=== PATIENT | male | born 1945 | race Caucasian/White ===

== ENCOUNTER 2020-05-11 15:39 | Inpatient (IN) | payer MEDICARE, OTHER ==
[~2020-05-11] VITALS: Ht 182.9 cm; Wt 92.8 kg
[~2020-05-11 15:39] MED LIST: AMLODIPINE BESY10 MG PO; ASPIR 8181 MG PO; CLONAZEPAM1 MG PO; ELIQUIS2.5 MG PO; FINASTERIDE5 MG PO; GABAPENTIN300 MG PO; LINZESS290 MCG PO; LOSARTAN POTAS100 MG PO; MIRALAX17 GM PO; NAPROSYN500 MG PO; NORCO 5-325 TA1 EACH PO; PANTOPRAZOLE SO40 MG PO
[2020-05-12 05:23] LABS: HEMOGLOBIN 9.3 gm/dl (14.0-17.5); RED BLOOD COUNT 3.16 M/UL (4.20-5.50); WHITE BLOOD COUNT 10.6 K/UL (4.5-11.0)
[2020-05-12 05:47] LABS: BUN/CREATININE RATIO 16 (0-10)
[2020-05-13 04:43] LABS: HEMOGLOBIN 8.5 gm/dl (14.0-17.5); RED BLOOD COUNT 2.91 M/UL (4.20-5.50); WHITE BLOOD COUNT 11.2 K/UL (4.5-11.0)
[2020-05-13 05:09] LABS: BUN/CREATININE RATIO 21 (0-10)
[2020-05-14 06:57] LABS: HEMOGLOBIN 9.6 gm/dl (14.0-17.5); WHITE BLOOD COUNT 11.2 K/UL (4.5-11.0)
[2020-05-14 06:58] LABS: RED BLOOD COUNT 3.28 M/UL (4.20-5.50)
[2020-05-14 07:22] LABS: BUN/CREATININE RATIO 16 (0-10)
[2020-05-14 12:06] LABS: HEMOGLOBIN 9.8 gm/dl (14.0-17.5)
[2020-05-15 04:18] LABS: HEMOGLOBIN 8.4 gm/dl (14.0-17.5); RED BLOOD COUNT 2.89 M/UL (4.20-5.50); WHITE BLOOD COUNT 9.2 K/UL (4.5-11.0)
[2020-05-15 04:37] LABS: BUN/CREATININE RATIO 23 (0-10)
[2020-05-15 05:36] LABS: BORDETELLA PARAPERTUSSIS Not Detected (Not Detectd); BORDETELLA PERTUSSIS Not Detected (Not Detectd); CHLAMYDIA PNEUMONIAE Not Detected (Not Detectd); CORONAVIRUS HKU1 Not Detected (Not Detectd); CORONAVIRUS NL63 Not Detected (Not Detectd); CORONAVIRUS OC43 Not Detected (Not Detectd); CORONOAVIRUS 229E Not Detected (Not Detectd); HUMAN METAPNEUMOVIRUS Not Detected (Not Detectd); HUMAN RHINOVIRUS/ENTEROVIRUS Not Detected (Not Detectd); INFLUENZA A Not Detected (Not Detectd); INFLUENZA B Not Detected (Not Detectd); MYCOPLASMA PNEUMONIAE Not Detected (Not Detectd); PARAINFLUENZA VIRUS 1 Not Detected (Not Detectd); PARAINFLUENZA VIRUS 2 Not Detected (Not Detectd); PARAINFLUENZA VIRUS 3 Not Detected (Not Detectd); PARAINFLUENZA VIRUS 4 Not Detected (Not Detectd); RESPIRATORY SYNCYTIAL VIRUS Not Detected (Not Detectd)
[2020-05-15 06:33] LABS: SARS-CoV-2 NOT DETECTED (Not Detectd)
[2020-05-15] MEDS ORDERED: DOXYCYCLINE HY100 MG PO (11:17)
[2020-05-15] MEDS ORDERED: IPRAT-ALBUT 0.5-3 ML NEB (11:20)
== END 2020-05-15 13:09 | disposition home or self-care (01) | DRG 199 ==
LOC: MED SURG 4 21:40
PROVIDERS: Internal Medicine; Internal Medicine Pulmonary Disease; Physician Assistant; ADMIT Internal Medicine
PROC: B24BZZZ Ultrasonography of Heart with Aorta (ICD-10-PCS; 2020-05-11)
PROC: 0W9B3ZZ Drainage of Left Pleural Cavity, Percutaneous Approach (ICD-10-PCS; principal; 2020-05-14)
DX: S27.1XXA Traumatic hemothorax, initial encounter (principal); J18.9 Pneumonia, unspecified organism; S22.42XA Multiple fractures of ribs, left side, initial encounter for closed fracture; J98.11 Atelectasis; J90 Pleural effusion, not elsewhere classified; Z20.822 Contact with and (suspected) exposure to COVID-19; W19.XXXA Unspecified fall, initial encounter; D64.9 Anemia, unspecified; I10 Essential (primary) hypertension; G47.33 Obstructive sleep apnea (adult) (pediatric); J44.9 Chronic obstructive pulmonary disease, unspecified; M19.90 Unspecified osteoarthritis, unspecified site; F17.210 Nicotine dependence, cigarettes, uncomplicated; Z82.49 Family history of ischemic heart disease and other diseases of the circulatory system; Y93.9 Activity, unspecified; Y92.9 Unspecified place or not applicable; Z79.82 Long term (current) use of aspirin; Z79.899 Other long term (current) drug therapy
CPT/HCPCS: ECHO; 36415; 71045; 71250; 80048; 80053; 82550; 82553; 83605; 83615; 83735; 83880; 84100; 85014; 85018; 85025; 85610; 85730; 86140; 86850; 86900; 86901; 87070; 87081; 87205; 87633; 93005; 93306; 94640; 94664; 94760; J0696; J2185

== ENCOUNTER → 2020-06-08 | Outpatient (CLI) | payer MEDICARE, OTHER ==
[~2020-06-08] MED LIST changes: +DOXYCYCLINE HY100 MG PO; +IPRAT-ALBUT 0.5-3 ML NEB
== END ==
LOC: RAD 10:06
DX: J18.9 Pneumonia, unspecified organism (principal); J90 Pleural effusion, not elsewhere classified
CPT/HCPCS: 71046

== ENCOUNTER → 2020-07-06 | Outpatient (CLI) | payer MEDICARE, OTHER | LOC: EXRD 10:41 | DX: J18.9 Pneumonia, unspecified organism (principal); J98.4 Other disorders of lung | CPT/HCPCS: 71046 ==

== ENCOUNTER 2021-09-04 15:59 | Emergency (ER) | payer MEDICARE, OTHER ==
[2021-09-04 17:21] LABS: HEMOGLOBIN 12.7 gm/dl (14.0-17.5); RED BLOOD COUNT 4.41 M/UL (4.20-5.50)
[2021-09-04 17:35] LABS: BUN/CREATININE RATIO 14 (0-10)
[2021-09-04] MEDS ORDERED: REGLAN5 MG PO (19:31)
== END 2021-09-04 20:45 | disposition home or self-care (01) ==
LOC: ER1 15:59
PROVIDERS: Physician Assistant Medical
DX: R11.0 Nausea (principal); K21.9 Gastro-esophageal reflux disease without esophagitis; I10 Essential (primary) hypertension; Z88.8 Allergy status to other drugs, medicaments and biological substances
CPT/HCPCS: 80053; 81001; 83690; 85025; 93005; 99284; Q9967